=== PATIENT | male | born 1940 | race Caucasian/White ===

== ENCOUNTER 2020-06-03 14:26 | Emergency (ER) | payer OTHER, SELFPAY ==
--- NOTE | ~2020-06-03 | CT_ITS ---
EXAMINATION: CT brain wo con EXAM DATE: 06/03/2020 15:08 INDICATION: Headaches for 2 months. Recent falls. TECHNIQUE: Spiral CT of the head was performed without contrast. Axial, coronal and sagittal images were reviewed. The dose-length product (DLP) for this examination was 681.00 mGy-cm. The exposure w as tailored according to patient size, and iterative reconstruction (ASIR) was used as additional dos e reduction technique. There is no prior study for comparison. FINDINGS: There is moderate-sized region of right frontal lobe encephalomalacia from old infarction. There is small old right occipital lobe infarction. There is no acute intraparenchymal hemorrhage. N o evidence of intraparenchymal brain mass lesion. No evidence of acute infarction. Please note that initial head CT has limited sensitivity for small or acute infarctions. There is moderate periventricular and subcortical hypodensity, nonspecific but probably related to sm all vessel ischemic disease. There is moderate prominence of the sulci and ventricles related to ce rebral atrophy. There is intracranial carotid arteriosclerosis. There are no extra-axial collectio ns. There is no mass effect or midline shift. Patient has had bilateral ocular lens surgery. Soft tissue is unremarkable. Left mastoid effusion. Minimal ethmoid mucoperiosteal thickening. IMPRESSION: 1. 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 2. Chronic age related findings. 3. Left mastoid effusion. Reviewed, dictated and finalized at location A. OL[facility] COATER
[2020-06-03 14:31] VITALS: BP 102/63; PULSE 82; RESP 18; TEMP 36.6; O2SAT 94
--- NOTE | 2020-06-03 15:00 | ECG_ITS ---
Measurements Intervals [place] Rate: 66 P: 28 DE: 152 QRS: 13 QRSD: 105 T: 93 QT: 402 QTc: 421 Interpretive Statements SINUS RHYTHM LOW QRS VOLTAGE IN LIMB LEADS BORDERLINE ST-T WAVE ABNORMALITY- INF/HIGH LAT LEADS BASELINE WANDER- I, II, AVR, AVL, AVF BORDERLINE ECG Electronically Signed On 06-03-2020 20:02:40 APPLICATION TECHNICIAN by Sanjay Amezcua D.O.
--- NOTE | 2020-06-03 15:00 | ED.HA ---
HPI - Headache General Chief Complaint: Headache Stated Complaint: cluster headaches, severe pain Time Seen by Provider: 06/03/20 14:53 Source: patient Mode of arrival: ambulatory Limitations: no limitations History of Present Illness HPI Narrative: Patient is a 80-year-old male complaining of cluster headache that started approximately 2 months ago. States that it would happen every other week patient was recently seen at another hospital last week for the same complaint. Patient also states that he seen his doctor for this and has an appointment to see a neurologist Dr. Gruber in 2 weeks. Patient denies any head injury, neck pain or stiffness, fever, chest pain, shortness of breath, abdominal pain, nausea vomiting. Patient denies any speech or visual disturbance, weakness, numbness or unsteady gait. Related Data Allergies Allergy/AdvReac Type Severity Reaction Status Date / Time adhesive Allergy Unknown Unknown Verified 06/03/20 14:34 latex Allergy Unknown Unknown Verified 06/03/20 14:34 Review of Systems Review of Systems: All systems reviewed & are unremarkable except as noted in HPI and below Constitutional: Constitutional: Denies body ache(s), Denies chills, Denies excessive sweating, Denies fatigue, Denies fever(s), Denies headache(s), Denies lethargy, Denies malaise, Denies weakness and Denies weight loss Eyes: Eyes: Denies blurry vision, Denies change in vision and Denies loss of vision ENT: Denies dizziness, Denies ear discharge, Denies headache(s), Denies lip swelling, Denies epistaxis, Denies nasal congestion, Denies neck pain, Denies throat swelling and Denies tongue swelling Cardiovascular: Cardiovascular: Denies chest pain, Denies chest pain at rest, Denies chest pain with activity, Denies diaphoresis, Denies rapid heart rate, Denies edema, Denies irregular heart rhythm, Denies lightheadedness, Denies palpitations, Denies dyspnea and Denies dyspnea on exertion Respiratory: Respiratory: Denies chest congestion, Denies cough, Denies hemoptysis, Denies dyspnea and Denies dyspnea on exertion Gastrointestinal: Gastrointestinal: Denies abdominal pain, Denies melena, Denies hematochezia, Denies diarrhea, Denies nausea, Denies vomiting and Denies hematemesis Musculoskeletal: Musculoskeletal: Denies abnormal gait, Denies deformity, Denies joint swelling, Denies limited range of motion, Denies neck pain and Denies numbness Neurologic: Denies Abnormal speech present, Denies abnormal gait, Denies confusion, Denies dizziness, Denies focal weakness, Denies loss of vision, Denies numbness, Denies Other visual disturbances, Denies Sensory deficit (Neuro) and Denies weakness Psychiatric: Psychiatric: Denies confusion, Denies depression, Denies auditory hallucinations, Denies homicidal ideation and Denies suicidal ideation Endocrine: Endocrine: Denies cold intolerance, Denies excessive sweating, Denies fatigue, Denies heat intolerance and Denies palpitations Hematologic/Lymphatic: Hematologic/Lymphatic: Denies easy bleeding and Denies easy bruising Allergic/Immunologic: Allergic/Immunologic: Denies lip swelling, Denies throat swelling and Denies tongue swelling PMFSH Past Medical History Medical History (Updated 06/03/20 @ 16:39 by Richie Laurent MD) Arthralgia BMI 25.0-25.9,adult Macrocytosis Family History Family History Mother Hypertension Family history of coronary artery disease Acute myocardial infarction Sibling Hypertension Father Family history of malignant neoplasm Other Family history of arthritis Social History Social History Smoking status: Current every day smoker Second hand tobacco smoke exposure: No Alcohol intake: current Exam Const: General: cooperative, healthy appearing, comfortable, no acute distress, well developed, alert and awake; No confusion
[2020-06-03] MEDS: METOCLOPRAMIDE HCL INJ 10 MG/2 ML VIAL 5 MG IV PUSH (15:34)
[2020-06-03] MEDS: diphenhydrAMINE HCl INJ 50 MG/ML VIAL 25 MG IV PUSH (15:34)
[2020-06-03] MEDS: SODIUM CHLORIDE 0.9% IV 1,000 ML 999 ML IV CONT (15:34)
[2020-06-03 15:39] LABS: Basophils Absolute Auto 0.1 K/mm3 (0.0-0.1); Basophils Percent Auto 0.8 % (0.2-1.2); Eosinophils Absolute Auto 0.2 K/mm3 (0-0.3); Eosinophils Percent Auto 2.3 % (0-4.4); Hematocrit 38.2 % (42.0-52.0); Hemoglobin 13.5 g/dL (14.0-18.0); Immature Granulocyte Absolute 0.03 K/mm3 (0.00-0.031); Immature Granulocyte Percent A 0.4 % (0-0.5); Lymphocytes Percent Auto 30.1 % (18.3-44.2); Mean Corpuscular HGB Conc 35.3 g/dl (32-36); Mean Corpuscular Hemoglobin 36.2 pg (26-34); Mean Corpuscular Volume 102.4 fl (80-100); Mean Platelet Volume 11.3 fl (7.4-10.4); Monocytes Absolute Auto 0.8 K/mm3 (0.1-0.6); Monocytes Percent Auto 9.9 % (2.6-8.5); Neutrophils Absolute Auto 4.5 K/mm3 (1.3-6.7); Neutrophils Percent Auto 56.5 % (45.5-73.1); Platelet Count Result 251 k/mm3 (150-375); Red Blood Count 3.73 M/mm3 (4.6-6.20); Red Cell Distribution Width 13.2 % (11.5-14.5)
[2020-06-03 16:01] LABS: Alanine Aminotransferase 13 U/L (4-50); Albumin Level 4.2 g/dL (3.5-5.1); Alkaline Phosphatase 89 U/L (38-126); Anion Gap 8 mmol/L (8-16); Aspartate Amino Transferase 26 U/L (17-59); Bilirubin,Total 0.5 mg/dL (0.2-1.3); Blood Urea Nitrogen 15 mg/dL (9-20); Carbon Dioxide 24 mmol/L (22-30); Chloride 97 mmol/L (98-107); Estimated CRCL calculation 69 ml/min; Estimated Glomerular Filt Rate > 60; Glucose 125 mg/dL (75-110); Potassium 4.1 mmol/L (3.4-5.0); Sodium 129 mmol/L (137-145)
[2020-06-03 16:13] LABS: Troponin I 0.013 ng/mL (0.000-0.034)
[2020-06-03] MEDS: KETOROLAC 15 MG/ML VIAL (*BKC) IV PUSH (17:09)
[2020-06-03 17:20] VITALS: BP 151/82; PULSE 64; RESP 17; O2SAT 97
== END 2020-06-03 17:32 | disposition home or self-care (01) ==
PROVIDERS: Emergency Provider Emergency Medicine; PCP Family Medicine
DX: G44.009 Cluster headache syndrome, unspecified, not intractable (principal)
CPT/HCPCS: 36415; 70450; 80053; 84484; 85025; 93005; 96374; 96375; 99284; J1200; J1885; J2765; J7030

== ENCOUNTER 2020-07-01 10:37 | Outpatient (CLI) | payer MEDICARE, SELFPAY ==
--- NOTE | ~2020-07-01 | CT_ITS ---
EXAMINATION: CTA brain DATE: 07/01/2020 11:10 INDICATION: Headache. TECHNIQUE: Computed tomographic angiography (CTA) of the head was performed without and with 100 mL O mnipaque-350 intravenous contrast. Automated exposure control and iterative reconstruction technique were employed. The dose-length product was 1046.38 mGy-cm. Maximum intensity projection 3D reconstru ctions were created. Volume-rendered 3D reconstructions of the intracranial arteries were created by the technologist on a separate workstation. COMPARISON: Head CT 06/03/2020 FINDINGS: There is a small old infarct in right cerebellum. There is an old infarct in right occipita l lobe. There is an old infarct involving right frontal lobe and right insula. There are scattered ar eas of low attenuation in the cerebral white matter. There is no intracranial hemorrhage, acute infar ction, or abnormal intracranial mass lesion. There is ex vacuo dilatation of anterior body of right l ateral ventricle. There are likely changes of ocular lens replacement surgeries. There is mild mucosa l thickening in the paranasal sinuses. There are surgical changes of the paranasal sinuses. There is a left otomastoid effusion. The vertebral arteries are codominant. There is no significant stenosis o f basilar artery or the posterior cerebral arteries. 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 There is no significant stenosis of the intracranial internal carotid arteries or anterior or m iddle cerebral arteries. Anterior communicating artery is normal. The posterior communicating arterie s are normal. IMPRESSION: 1. 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 2. Mild nonspecific cerebral white matter disease, which likely represents chronic small vessel ische ben disease. 3. 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 Reviewed, dictated and finalized at location B. [facility] IMPRESSION: 1. 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 2. Mild nonspecific cerebral white matter disease, which likely represents rn lactation ana small vessel ischemic disease. 3. 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
== END 2020-07-01 10:38 | disposition home or self-care (01) ==
PROVIDERS: PCP Family Medicine; Visit Provider Psychiatry & Neurology Neurology
DX: R51.9 Headache, unspecified (principal); I72.8 Aneurysm of other specified arteries; R90.82 White matter disease, unspecified; Z86.73 Personal history of transient ischemic attack (TIA), and cerebral infarction without residual deficits
CPT/HCPCS: 70496; Q9967

== ENCOUNTER 2020-07-30 13:47 | Emergency (ER) | payer MEDICARE, SELFPAY ==
[2020-07-30 13:57] VITALS: BP 157/100; PULSE 94; RESP 18; TEMP 36.6; O2SAT 95; O2SAT 96
[2020-07-30 13:58] VITALS: O2SAT 97
[2020-07-30] MEDS: TETANUS,DIPHTHERIA,AC PERTUSSIS ADULT (0.5 ML) BOOSTRIX IM (15:01)
[2020-07-30 15:07] LABS: Basophils Absolute Auto 0.1 K/mm3 (0.0-0.1); Basophils Percent Auto 0.8 % (0.2-1.2); Eosinophils Absolute Auto 0.2 K/mm3 (0-0.3); Eosinophils Percent Auto 1.3 % (0-4.4); Hematocrit 37.3 % (42.0-52.0); Hemoglobin 13.3 g/dL (14.0-18.0); Immature Granulocyte Absolute 0.06 K/mm3 (0.00-0.031); Immature Granulocyte Percent A 0.5 % (0-0.5); Lymphocytes Absolute Auto 3.11 K/mm3 (0.9-3.2); Lymphocytes Percent Auto 26.1 % (18.3-44.2); Mean Corpuscular HGB Conc 35.7 g/dl (32-36); Mean Corpuscular Hemoglobin 36.4 pg (26-34); Mean Corpuscular Volume 102.2 fl (80-100); Mean Platelet Volume 10.1 fl (7.4-10.4); Monocytes Absolute Auto 1.7 K/mm3 (0.1-0.6); Monocytes Percent Auto 13.8 % (2.6-8.5); Neutrophils Absolute Auto 6.9 K/mm3 (1.3-6.7); Neutrophils Percent Auto 57.5 % (45.5-73.1); Platelet Count Result 387 k/mm3 (150-375); Red Blood Count 3.65 M/mm3 (4.6-6.20); Red Cell Distribution Width 13.6 % (11.5-14.5); White Blood Count 11.9 K/mm3 (4.5-10.0)
[2020-07-30 15:21] LABS: Alanine Aminotransferase 10 U/L (4-50); Albumin Level 4.1 g/dL (3.5-5.1); Alkaline Phosphatase 68 U/L (38-126); Anion Gap 7 mmol/L (8-16); Aspartate Amino Transferase 23 U/L (17-59); Bilirubin,Total 0.5 mg/dL (0.2-1.3); Blood Urea Nitrogen 20 mg/dL (9-20); Calcium 9.5 mg/dL (8.4-10.2); Carbon Dioxide 24 mmol/L (22-30); Chloride 101 mmol/L (98-107); Estimated CRCL calculation 69 ml/min; Estimated Glomerular Filt Rate > 60; Glucose 88 mg/dL (75-110); Potassium 4.1 mmol/L (3.4-5.0); Sodium 132 mmol/L (137-145)
--- NOTE | 2020-07-30 15:25 | ED.GENADULT ---
HPI - General Adult General Chief complaint: Wound/Laceration <MEHDI Pittman Last Filed: 07/30/20 16:08> Stated complaint: left hand wound <MEHDI Pittman Last Filed: 07/30/20 16:08> Time Seen by Provider: 07/30/20 13:51 <MEHDI Pittman Last Filed: 07/30/20 16:08> Source: patient <MEHDI Pittman Last Filed: 07/30/20 16:08> Mode of arrival: ambulatory <MEHDI Pittman Last Filed: 07/30/20 16:08> Limitations: no limitations <MEHDI Pittman Last Filed: 07/30/20 16:08> History of Present Illness HPI narrative: Patient presents with chief complaint of redness swelling wound to the dorsal aspect of his second digit that has increased in size over the past 2 weeks. Patient states that it started as a small pimple then has expanded. Patient still has full range of motion to the hand and joint. He states that the wound will occasionally drains clear serous fluid. Patient denies having fever, chills, lethargy, weakness or any other symptoms. Patient states that he has been putting antibacterial ointment on the wound site but it is not completely resolving. <Haylee Salcedo PA-C - Last Filed: 07/30/20 16:08> Related Data Allergies/adverse reactions: Allergies Allergy/AdvReac Type Severity Reaction Status Date / Time adhesive Allergy Unknown Unknown Verified 07/31/20 09:21 latex Allergy Unknown Unknown Verified 07/31/20 09:21 <MEHDI Pittman Last Filed: 07/30/20 16:08> Review of Systems Review of Systems: Narrative: CONSTITUTIONAL: Denies fever, chills, or sweats. EYES: Denies visual changes, redness, or discharge. ENT: Denies rhinorrhea, congestion, sore throat, or otalgia. CARDIOVASCULAR: Denies chest pain, palpitations, or edema. RESPIRATORY: Denies cough or dyspnea. GASTROINTESTINAL: Denies abdominal pain, nausea, vomiting, or diarrhea. GENITOURINARY: Denies dysuria or hematuria. SKIN: Reports wound denies rash or itching. MUSCULOSKELETAL: Denies back pain, myalgia, or joint pain NEUROLOGIC: Denies headache, numbness, dizziness, or weakness. PSYCHIATRIC: Denies anxiety or depression. <Haylee Salcedo PA-C - Last Filed: 07/30/20 16:08> [facility] Past Medical History Medical History: Medical History Arthralgia BMI 25.0-25.9,adult Macrocytosis Tobacco abuse <Haylee Salcedo PA-C - Last Filed: 07/30/20 16:08> Family History Family History: Family History Mother Hypertension Family history of coronary artery disease Acute myocardial infarction Sibling Hypertension Father Family history of malignant neoplasm Other Family history of arthritis <Haylee Salcedo PA-C - Last Filed: 07/30/20 16:08> Social History Social History: Social History Smoking status: Current every day smoker Second hand tobacco smoke exposure: No Alcohol intake: current <Haylee Salcedo PA-C - Last Filed: 07/30/20 16:08> Exam Narrative: Exam Narrative: GENERAL: Well-appearing, Nontoxic in appearance. Elderly. HEAD: Normocephalic, atraumatic. EYES: PERRLA and EOMI. CHEST: Clear to auscultation. No respiratory distress. EXTREMITIES: There is open wound to the dorsal aspect of the left second digit. Multiple small bumps coalesced into the wound. There is not a palpable underlying abscess that is drainable. No purulent discharge is expressed from the wound with pressure. Patient still has pulses radial and full range of motion to the digit. SKIN: Warm, dry, no rash. NEURO: No focal deficits. Alert and oriented x3. PSYCH: Normal mood and affect. <Haylee Salcedo PA-C - Last Filed: 07/30/20 16:08> Course REGULATORY AFFAIRS STRATEGY SPECIALIST/PA Physician Supervision For this patient encounter, I reviewed the REGULATORY AFFAIRS STRATEGY SPECIALIST or PA documentation, treatment plan, and medical decision
--- NOTE | 2020-07-30 15:30 | PC.NURSE ---
resting on stretcher. c/o headache. took tylenol at home this am. c/o chronic headaches. takes tylenol on a regular basis. BP is up but patient has been out of home meds. provider is aware.
[2020-07-30] MEDS: ACETAMINOPHEN 325 MG TABLET 650 MG (15:45)
--- NOTE | 2020-07-30 15:45 | PC.NURSE ---
tylenol given. provider in room. discharge instructions and follow up care reviewed with patient and his brother. dressing to wound.
== END 2020-07-30 15:51 | disposition home or self-care (01) ==
PROVIDERS: Physician Assistant; Emergency Provider Emergency Medicine; PCP Family Medicine
DX: L03.114 Cellulitis of left upper limb (principal); F17.210 Nicotine dependence, cigarettes, uncomplicated; Z23 Encounter for immunization
CPT/HCPCS: 36415; 80053; 85025; 90471; 90715; 99283; A9270

== ENCOUNTER 2020-11-19 15:44 | Emergency (ER) | payer MEDICARE, SELFPAY ==
--- NOTE | ~2020-11-19 | XR_ITS ---
EXAMINATION: XR ankle RT min 3V DATE: 11/19/2020 17:55 INDICATION: Infection with erythema and swelling. TECHNIQUE: Anteroposterior, mortise, and lateral views of the right ankle were obtained. COMPARISON: Right heel radiographs dated 12/16/2009 FINDINGS: Bone alignment is normal. No fracture. Profile joint space at the ankle, mid and hindfoot appear rela tively preserved. Small plantar calcaneal spur. No periosteal reaction or cortical erosions to sugges t osteoarthritis. Prominent soft tissue swelling over the dorsum of the incompletely visualized foref oot. IMPRESSION: 1. No acute osseous abnormality. Reviewed, dictated and finalized at location A.
[2020-11-19 16:05] VITALS: BP 108/65; PULSE 101; RESP 19; TEMP 36.3; O2SAT 100
[2020-11-19 16:17] LABS: Basophils Percent Auto 0.3 % (0.2-1.2); Eosinophils Absolute Auto 0.1 K/mm3 (0-0.3); Eosinophils Percent Auto 0.4 % (0-4.4); Hematocrit 29.3 % (42.0-52.0); Hemoglobin 10.5 g/dL (14.0-18.0); Immature Granulocyte Absolute 0.11 K/mm3 (0.00-0.031); Immature Granulocyte Percent A 0.8 % (0-0.5); Lymphocytes Absolute Auto 1.92 K/mm3 (0.9-3.2); Mean Corpuscular HGB Conc 35.8 g/dl (32-36); Mean Corpuscular Hemoglobin 38.6 pg (26-34); Mean Corpuscular Volume 107.7 fl (80-100); Mean Platelet Volume 8.8 fl (7.4-10.4); Monocytes Percent Auto 7.5 % (2.6-8.5); Neutrophils Absolute Auto 10.6 K/mm3 (1.3-6.7); Platelet Count Result 494 k/mm3 (150-375); Red Blood Count 2.72 M/mm3 (4.6-6.20); White Blood Count 13.8 K/mm3 (4.5-10.0)
[2020-11-19 16:29] LABS: Alanine Aminotransferase 9 U/L (4-50); Albumin Level 3.4 g/dL (3.5-5.1); Alkaline Phosphatase 107 U/L (38-126); Anion Gap 6 mmol/L (8-16); Aspartate Amino Transferase 25 U/L (17-59); Bilirubin,Total 0.3 mg/dL (0.2-1.3); Blood Urea Nitrogen 20 mg/dL (9-20); CRP 2.9 mg/dL (<1.0); Calcium 8.9 mg/dL (8.4-10.2); Carbon Dioxide 21 mmol/L (22-30); Chloride 100 mmol/L (98-107); Estimated Glomerular Filt Rate > 60; Glucose 96 mg/dL (75-110); Potassium 4.3 mmol/L (3.4-5.0); Sodium 127 mmol/L (137-145)
[2020-11-19 16:39] LABS: Erythrocyte Sedimentation Rate 82 mm/hr (0-20)
[2020-11-19 16:55] VITALS: BP 118/77; O2SAT 93
--- NOTE | 2020-11-19 16:57 | PC.NURSE ---
Attempt to call Don B (per note from triage) at [phone] made. Call not answered.
[2020-11-19 17:01] VITALS: BP 124/89; O2SAT 94
--- NOTE | 2020-11-19 17:37 | ED.LOWEXIN ---
HPI - Extremity Injury (Lower) General Chief Complaint: Extremity Injury, Lower Stated Complaint: lower extremitiy Time Seen by Provider: 11/19/20 17:37 History of Present Illness HPI Narrative: History limited by patient cooperation He reports severe pain in the right ankle for a few weeks. Getting worse. Associated with redness and swelling. No injury. No known wound. Unwilling to provide any details. Related Data Home Medications Medication Instructions Recorded Confirmed folic acid 11/19/20 losartan 11/19/20 nabumetone mg 11/19/20 thiamine mononitrate (vit B1) 11/19/20 [Vitamin B-1 (mononitrate)] Allergies Allergy/AdvReac Type Severity Reaction Status Date / Time No Known Allergies Allergy Verified 11/19/20 18:23 Review of Systems Review of Systems: ROS unobtainable: Yes other (Limited by cooperation) Constitutional: Constitutional: Denies fever(s) Cardiovascular: Cardiovascular: Denies chest pain Respiratory: Respiratory: Denies dyspnea PMFSH Past Medical History Medical History Arthralgia BMI 25.0-25.9,adult Macrocytosis Tobacco abuse Family History Family History Mother Hypertension Family history of coronary artery disease Acute myocardial infarction Sibling Hypertension Father Family history of malignant neoplasm Other Family history of arthritis Social History Social History Smoking status: Current every day smoker Second hand tobacco smoke exposure: No Alcohol intake: current Gender identity (if verbalized by the patient): Male Exam Const: General: no acute distress, alert and ill appearing Nutritional Appearance: thin Orientation/consciousness: patient oriented x3 HENMT: Head: normal to inspection Resp: Effort & Inspection: normal respiratory effort Auscultation: clear to auscultation bilaterally Cardio: Rate: regular rate Rhythm: regular rhythm GI: GI Palp: Yes Soft to palpation and No Tenderness to palpation present (GI) Skin: Other: erythema of right foot and ankle. Neuro: General: patient oriented x3 and moves all extremities Speech: normal speech Extrem: Other: moderate swelling and tenderness around the right ankle Course Course Emergency Course: As soon as I arrived at the room the patient started complaining about how long he had to wait and that he had had to wait even longer last time. I tried to apologize, but he continued to make remarks about how dissatisfied he was. He was reluctant to answer questions or participate in the exam. He then was verbally abusive with the nurse and shortly thereafter chose to sign out AMA Vital Signs Vital signs: Vital Signs Temperature 36.3 C L 11/19/20 16:05 Pulse Rate 101 H 11/19/20 16:05 Respiratory Rate 19 11/19/20 16:05 Blood Pressure 108/65 11/19/20 16:05 Pulse Oximetry 100 11/19/20 16:05 Temperature 36.3 C L 11/19/20 16:05 Pulse Rate 83 11/19/20 18:15 Respiratory Rate 18 11/19/20 18:15 Blood Pressure 142/99 H 11/19/20 18:15 Pulse Oximetry 97 11/19/20 18:15 MDM - Extremity Injury (Lower) MDM Narrative Medical decision making narrative: Can not rule out septic joint. He would likely benefit from admission for IV antibiotics. He signed out AMA Differential Diagnosis Differential diagnosis: Likely other (cellulitis, septic joint) Medical Records Attestation: I reviewed the patient's medical records. Lab Data Attestation: I reviewed the patient's lab results. Result diagrams: 11/19/20 16:11 11/19/20 16:11 Labs: Lab Results 11/19/20 11/19/20 Range/Units 16:11 16:11 WBC 13.8 H (4.5-10.0) K/mm3 RBC 2.72 L (4.6-6.20) M/mm3 Hgb 10.5 L (14.0-18.0) g/dL Hct 29.3 L (42.0-52.0) % MCV 107.7 H (80-100) fl MCH 38.6
--- NOTE | 2020-11-19 18:00 | PC.NURSE ---
Pt called out and requested RN, RN to room. Pt stated that he wanted to go home. RN explained why it is important for pt to stay. Pt requested RN remove mask and when she said she couldn't he said Yes you will because I fucking said so. Nurse again said that she couldn't, pt said well I am fucking leaving because you all haven't done a God damn thing. Pt received AMA paperwork, once again reiterated importance of staying or at least following up care, pt states piss all of you, I'm going to [facility]. Pt disconnected from monitors, given prescription for antibiotic, and assisted out of the ED by wheelchair with oil and gas exploration technician.
[2020-11-19 18:01] VITALS: BP 142/99; O2SAT 96
[2020-11-19] MEDS: CEPHALEXIN 500 MG CAPSULE PO (18:10)
[2020-11-19 18:15] VITALS: BP 142/99; PULSE 83; RESP 18; O2SAT 97
== END 2020-11-19 18:15 | disposition left against medical advice (07) ==
PROVIDERS: Emergency Provider Emergency Medicine; PCP Family Medicine
DX: L03.115 Cellulitis of right lower limb (principal); F17.200 Nicotine dependence, unspecified, uncomplicated
CPT/HCPCS: 36415; 73610; 80053; 85025; 85652; 86140; 99283; A9270

== ENCOUNTER 2020-11-28 17:14 | Outpatient (CLI) | payer MEDICARE, SELFPAY ==
[2020-11-28 17:41] LABS: Basophils Absolute Auto 0.1 K/mm3 (0.0-0.1); Basophils Percent Auto 0.4 % (0.2-1.2); Eosinophils Absolute Auto 0.1 K/mm3 (0-0.3); Eosinophils Percent Auto 0.5 % (0-4.4); Hematocrit 33.2 % (42.0-52.0); Hemoglobin 11.5 g/dL (14.0-18.0); Immature Granulocyte Percent A 0.9 % (0-0.5); Lymphocytes Percent Auto 14.1 % (18.3-44.2); Mean Corpuscular HGB Conc 34.6 g/dl (32-36); Mean Corpuscular Volume 112.5 fl (80-100); Mean Platelet Volume 8.7 fl (7.4-10.4); Monocytes Absolute Auto 0.9 K/mm3 (0.1-0.6); Monocytes Percent Auto 8.3 % (2.6-8.5); Neutrophils Absolute Auto 8.6 K/mm3 (1.3-6.7); Neutrophils Percent Auto 75.8 % (45.5-73.1); Platelet Count Result 516 k/mm3 (150-375); Red Blood Count 2.95 M/mm3 (4.6-6.20); Red Cell Distribution Width 15.5 % (11.5-14.5); White Blood Count 11.4 K/mm3 (4.5-10.0)
[2020-11-28 17:55] LABS: CRP 1.3 mg/dL (<1.0); Uric Acid 2.9 mg/dL (3.5-8.5)
[2020-11-28 18:13] LABS: Erythrocyte Sedimentation Rate 48 mm/hr (0-20)
== END 2020-11-28 17:15 | disposition home or self-care (01) ==
PROVIDERS: PCP Family Medicine; Visit Provider Nurse Practitioner Family
DX: L03.90 Cellulitis, unspecified (principal); R79.82 Elevated C-reactive protein (CRP); M25.571 Pain in right ankle and joints of right foot; R70.0 Elevated erythrocyte sedimentation rate
CPT/HCPCS: 36415; 84550; 85025; 85652; 86140